=== PATIENT | female | born 1985 | race African-American/Black ===

== ENCOUNTER 2024-02-18 13:54 | Emergency (ER) | payer SELFPAY ==
[~2024-02-18] VITALS: Ht 162.5 cm; Wt 79.8 kg
[2024-02-18] MEDS ORDERED: Acetaminophen/Oxycodone 5 MG/325 MG TABLET PO ONE (14:25)
[2024-02-18] MEDS ORDERED: NAPROSYN500 MG PO (15:29)
[2024-02-18] MEDS ORDERED: ZANAFLEX4 MG PO (15:29)
== END 2024-02-18 15:37 | disposition home or self-care (01) ==
LOC: ED 13:54
DX: S86.912A Strain of unspecified muscle(s) and tendon(s) at lower leg level, left leg, initial encounter (principal); Z88.0 Allergy status to penicillin; X58.XXXA Exposure to other specified factors, initial encounter; Y93.89 Activity, other specified; Y92.89 Other specified places as the place of occurrence of the external cause; Y99.0 Civilian activity done for income or pay